=== PATIENT | female | born 2000 | race American Indian/Alaskan Native ===

== ENCOUNTER 2021-12-26 00:26 | Emergency (ER) | payer SELFPAY ==
[2021-12-26 00:36] VITALS: BP 135/68
== END 2021-12-26 03:55 | disposition left against medical advice (07) ==
LOC: ED 00:26
DX: M79.641 Pain in right hand (principal); Z53.21 Procedure and treatment not carried out due to patient leaving prior to being seen by health care provider

== ENCOUNTER 2022-04-16 13:22 | Emergency (ER) | payer SELFPAY ==
[2022-04-16 13:36] VITALS: BP 131/75
--- NOTE | 2022-04-16 13:38 | Emergency Department Report ---
- General Stated Complaint: SORE THROAT/HEADACHE PUI?: No Time Seen by Provider: 04/16/22 13:36 Source: patient Mode of arrival: Ambulatory Limitations: No Limitations - History of Present Illness MD Complaint: sore throat -: Gradual, days(s) Severity: mild Severity scale (0 -10): 2 Quality: burning Consistency: constant Improves With: nothing Worsens With: nothing Associated Symptoms: denies other symptoms, sore throat. denies: fever, chills, myalgias, diaphoresis, headache, nasal congestion, stiff neck, cough, chest pain, shortness of breath, abdominal pain, nausea, vomiting, diarrhea, dysuria, rash, confusion, right sweats, weight loss, epistaxis, hoarseness, ear pain Treatments Prior to Arrival: none - Related Data Previous Rx's Medication Instructions Recorded Last Taken Type Amoxicillin [Trimox CAP] 500 mg PO BID #20 capsule 04/16/22 Unknown Rx Allergies Allergy/AdvReac Type Severity Reaction Status Date / Time No Known Allergies Allergy Verified 04/16/22 13:37 ED Review of Systems ROS: Stated complaint: SORE THROAT/HEADACHE Other details as noted in HPI Comment: All other systems reviewed and negative ED Past Medical Hx - Past Medical History Previous Medical History?: Yes Additional medical history: HX STREP - Surgical History Past Surgical History?: No - Family History Family history: no significant - Social History Smoking Status: Never Smoker Substance Use Type: Alcohol - Medications Home Medications: Home Medications Medication Instructions Recorded Confirmed Last Taken Type Amoxicillin [Trimox CAP] 500 mg PO BID #20 capsule 04/16/22 Unknown Rx ED Physical Exam - General Limitations: No Limitations General appearance: alert, in no apparent distress - Head Head exam: Present: atraumatic, normocephalic - Eye Eye exam: Present: normal appearance - ENT ENT exam: Present: mucous membranes moist, other (EXUDATE LEFT) - Expanded ENT Exam Expanded Mouth exam: Present: normal external inspection. Absent: drooling, trismus, muffled voice, tongue normal, tongue elevation, laceration Teeth exam: Present: normal inspection. Absent: dental caries Throat exam: Positive: tonsillar erythema, tonsillar exudate (L) - Neck Neck exam: Present: normal inspection, full ROM - Respiratory Respiratory exam: Present: normal lung sounds bilaterally. Absent: respiratory distress - Cardiovascular Cardiovascular Exam: Present: regular rate, normal rhythm. Absent: systolic murmur, diastolic murmur, rubs, gallop - GI/Abdominal GI/Abdominal exam: Present: soft, normal bowel sounds - Extremities Exam Extremities exam: Present: normal inspection - Back Exam Back exam: Present: normal inspection - Neurological Exam Neurological exam: Present: alert, oriented X3 - Psychiatric Psychiatric exam: Present: normal affect, normal mood - Skin Skin exam: Present: warm, dry, intact, normal color. Absent: rash ED Course Vital Signs 04/16/22 13:33 Temperature 98.8 F Pulse Rate 111 H Respiratory 18 Rate Blood Pressure 131/75 O2 Sat by Pulse 98 Oximetry ED Medical Decision Making - Medical Decision Making Vital Signs 04/16/22 13:33 Temperature 98.8 F Pulse Rate 111 H Respiratory 18 Rate Blood Pressure 131/75 O2 Sat by Pulse 98 Oximetry ABC INTACT TAKING PO AMBULATORY AND NON TOXIC NO FEVER HR 88 ON EXAM LUNGS CTA DC HOME WITH DC PLAN OF CARE INCLUDING DIET, MEDS, ACTIVITY AND FOLLOW UP. SHE VERBALIZES UNDERSTANDING OF PLAN OF CARE. - Differential Diagnosis PHARYNGITIS- URI Critical care attestation.: If time is entered above; I have spent that time in minutes in the direct care of this critically ill patient, excluding procedure time. ED Disposition Clinical Impression: Exudative pharyngitis Disposition: 01 HOME / SELF CARE / HOMELESS Is pt being admited?: No Does the pt Need Aspirin: No Condition: Stable Instructions: Strep Throat, Adult Additional Instructions: MED ORDERED UNTIL GONE MOTRIN OR TYLENOL FOR PAIN OR FEVER DIET AND ACTIVITY TOLERATED FOLLOW UP WITH PCP REFERRAL BELOW Prescriptions: Amoxicillin [Trimox CAP] 500 mg PO BID #20 capsule Referrals: KANE BRENNAN MD [Staff Physician] - 3-5 Days Forms: Work/School Release Form(ED) Time of Disposition: 13:37
== END 2022-04-16 14:00 | disposition home or self-care (01) ==
LOC: ED 13:22
DX: J02.9 Acute pharyngitis, unspecified (principal); Z72.89 Other problems related to lifestyle; Z79.899 Other long term (current) drug therapy
CPT/HCPCS: 99281